=== PATIENT | female | born 1960 | race Caucasian/White ===

== ENCOUNTER 2018-11-01 11:54 | Inpatient (IN) | payer OTHER ==
[~2018-11-01] VITALS: Ht 162.6 cm; Wt 83.0 kg
[2018-11-01] VITALS (7 sets, daily range): BP systolic 151–185; BP diastolic 79–97
[2018-11-01] MEDS ORDERED: ANTACID SUSP 30 ML UDC (MYLANTA) PO PRN (13:15)
[2018-11-01] MEDS ORDERED: ONDANSETRON 4 MG/2 ML (SDV) Z0FRAN IV PRN (13:15)
[2018-11-01] MEDS ORDERED: MILK OF MAGNESIA 400 MG/5 ML 30 ML UDC PO PRN (13:15)
[2018-11-01] MEDS ORDERED: ACETAMINOPHEN 500 MG TAB (TYLENOL) PO PRN (13:15)
[2018-11-01] MEDS ORDERED: CATHETER FLUSH 10 ML SYR IV PRN (15:45)
[2018-11-01] MEDS ORDERED: ACETAMINOPHEN 325 MG TABLET PO PRN (15:45)
[2018-11-01] MEDS ORDERED: PIPERACILLIN/TAZO 4.5 GM/NS 100 ML IV NR ×2 (15:45)
[2018-11-01] MEDS ORDERED: RT-ALBUTEROL/IPRATROPIUM 3 ML (DUONEB) VIAL INH PRN (16:00)
[2018-11-01] MEDS: methylPREDNISolone 40 MG/ML (Solu-MEDROL) VIAL IV SCH (18:00)
--- NOTE | 2018-11-01 18:06 | Diagnostic Imaging Report ---
PATIENT HISTORY: Hypoxia, difficulty breathing. TECHNIQUE: Single frontal view the chest. COMPARISON: None. FINDINGS: The lung volumes are normal. No focal consolidation is seen. No large pleural effusion or pneumothorax is seen. The cardiomediastinal silhouette is normal in size and contour. No acute osseous abnormality is seen. Cervical spine fusion hardware is noted. IMPRESSION: No acute pulmonary abnormality seen. Dictated by: Dictated on workstation # [id number]
[2018-11-01] MEDS: NITROGLYCERIN 2% OINT 1 GM UNIT DOSE PACKET TOP PRN (18:34)
[2018-11-01] MEDS ORDERED: diphenhydrAMINE 25 MG TAB (BENADRYL) PO PRN (18:45)
[2018-11-01] MEDS: RT-ALBUTEROL/IPRATROPIUM 3 ML (DUONEB) VIAL INH SCH ×2 (19:02→22:20)
[2018-11-01] MEDS: PIPERACILLIN SODIUM/TAZOBACTAM 4.5 GM in NS (IVPB) 100 ML IV SCH (21:18)
[2018-11-01] MEDS: MELATONIN 3 MG TABLET PO SCH (21:18)
[2018-11-01] MEDS: CATHETER FLUSH 10 ML SYR IV SCH (21:19)
[2018-11-02] VITALS (7 sets, daily range): BP systolic 143–202; BP diastolic 80–100
[2018-11-02] MEDS: methylPREDNISolone 40 MG/ML (Solu-MEDROL) VIAL IV SCH ×5 (00:36→23:15)
[2018-11-02] MEDS: RT-ALBUTEROL/IPRATROPIUM 3 ML (DUONEB) VIAL INH SCH ×6 (02:28→21:10)
[2018-11-02 03:56] LABS: BASOPHILS % (AUTO) 0 % (0-10); EOSINOPHILS % (AUTO) 0 % (0-10); HEMATOCRIT 41 % (35-52); HEMOGLOBIN 13.2 G/DL (11.5-16.0); LYMPHOCYTES # (AUTO) 1.3 X 10^3 (1.0-4.0); LYMPHOCYTES % (AUTO) 12 % (12-44); MEAN CORPUSCULAR HEMOGLOBIN 32 PG (25-34); MEAN CORPUSCULAR HGB CONC 33 G/DL (32-36); MEAN CORPUSCULAR VOLUME 98 FL (80-99); MEAN PLATELET VOLUME 10.3 FL (7.4-10.4); MONOCYTES # (AUTO) 0.4 X 10^3 (0.0-1.0); MONOCYTES % (AUTO) 4 % (0-12); NEUTROPHILS # (AUTO) 8.7 X 10^3 (1.8-7.8); NEUTROPHILS % (AUTO) 84 % (42-75); PLATELET COUNT 239 10^3/uL (130-400); RED BLOOD COUNT 4.13 10^6/uL (4.35-5.85); RED CELL DISTRIBUTION WIDTH 12.4 % (10.0-14.5); WHITE BLOOD COUNT 10.4 10^3/uL (4.3-11.0)
[2018-11-02 04:16] LABS: BUN/CREATININE RATIO 23; CARBON DIOXIDE 24 MMOL/L (21-32); CHLORIDE 100 MMOL/L (98-107); CREATININE SERUM 0.79 MG/DL (0.60-1.30); GFR ESTIMATED > 60; GLUCOSE 169 MG/DL (70-105); SODIUM 137 MMOL/L (135-145)
[2018-11-02] MEDS: PIPERACILLIN SODIUM/TAZOBACTAM 4.5 GM in NS (IVPB) 100 ML IV SCH ×3 (06:16→21:12)
[2018-11-02] MEDS: CATHETER FLUSH 10 ML SYR IV SCH ×3 (06:16→21:09)
--- NOTE | 2018-11-02 06:41 | Pulmonary Consultation ---
History of Present Illness History of Present Illness Date of Consultation 11/02/18 06:40 Date of Admission Allergies and Home Medications Allergies Coded Allergies: No Allergy Information Available (Unverified , 11/01/18) Past Uhpadkq-Agxasx-Iaboyx Hx Patient Social History Alcohol Use: Rarely Uses Number of Drinks Today: 0 Alcohol Beverage of Choice: Beer Recreational Drug Use: No Smoking Status: Current Everyday Smoker Type Used: Cigarettes Recent Foreign Travel: No Contact w/Someone Who Travel: No Recent Infectious Disease Expo: No Recent Hopitalizations: Yes Immunizations Up To Date Date of Influenza Vaccine: Aug 01, 2018 Seasonal Allergies Seasonal Allergies: No Past Medical History Asthma, Pneumonia, COPD, Emphysema Currently Using CPAP: No Currently Using BIPAP: No Cardiac: Yes Neurological: No Genitourinary: No Abdominal Hernia, Gall Bladder Disease Musculoskeletal: Yes Degenerate Disk Disease, Chronic Back Pain Endocrine: No HEENT: No Loss of Vision: Denies Hearing Impairment: Denies Cancer: No Psychosocial: No Integumentary: No Blood Disorders: No Adverse Reaction/Blood Tranf: No Sepsis Event Evaluation Height, Weight, BMI Height: 5'4.00" Weight: 183lbs. 1.0oz. 83.823557vm; 31.4 BMI Method: Exam Exam Vital Signs Date Time Temp Pulse Resp B/P (MAP) Pulse Ox O2 Delivery O2 Flow Rate FiO2 11/02/18 04:00 94 Nasal Cannula 4.00 11/02/18 04:00 97.5 80 14 165/91 (115) 96 Nasal Cannula 4.00 11/02/18 02:28 95 Nasal Cannula 4.00 11/02/18 01:00 72 11/02/18 00:00 94 Nasal Cannula 4.00 11/02/18 00:00 98.0 68 14 143/86 (105) 93 Nasal Cannula 4.00 11/01/18 22:21 94 Nasal Cannula 4.00 11/01/18 21:00 94 Nasal Cannula 4.00 11/01/18 20:00 94 Nasal Cannula 4.00 11/01/18 20:00 97.1 77 21 151/79 (103) 95 Nasal Cannula 4.00 11/01/18 19:03 92 Nasal Cannula 4.00 11/01/18 19:00 68 11/01/18 18:26 70 18 184/96 (125) 96 Nasal Cannula 4.00 11/01/18 16:00 94 Nasal Cannula 4.00 11/01/18 15:47 74 94 36 11/01/18 15:47 94 Nasal Cannula 4.00 11/01/18 15:02 94 Nasal Cannula 4.00 11/01/18 15:00 73 22 180/89 (119) 92 Nasal Cannula 4.00 11/01/18 14:45 66 16 168/90 (116) 93 Nasal Cannula 4.00 11/01/18 14:30 98.4 69 18 161/86 (111) 94 Nasal Cannula 4.00 11/01/18 14:25 71 11/01/18 14:20 70 14 185/97 (126) 94 Nasal Cannula 4.00 I & O 11/02/18 06:59 Intake Total 400 ml Balance 400 ml Height & Weight Height: 5'4.00" Weight: 183lbs. 1.0oz. 83.526098rg; 31.4 BMI Method: Results Lab Laboratory Tests 11/02/18 03:05 Assessment/Plan Assessment/Plan AsthmaAE COPDAE r/o PNA -Steroids, SVNS, oxygen -Currently on Zosyn -NO fever or leukocytosis COLEEN PALOMINO DO Nov 02, 2018 06:41
--- NOTE | 2018-11-02 07:17 | Diagnostic Imaging Report ---
INDICATION: Respiratory distress Portable upright AP view of the chest is obtained. Comparison is made to study of 11/01/2018. FINDINGS: Heart size and pulmonary vascularity are within normal limits, and the lungs are clear, bilaterally. IMPRESSION: Unremarkable chest. Dictated by: Dictated on workstation # [id number]
[2018-11-02] MEDS: NICOTINE 21 MG (NICODERM) PATCH TD SCH (08:25)
[2018-11-02] MEDS ORDERED: OMEP40CA36 PO (11:17)
[2018-11-02] MEDS ORDERED: DILT180C PO (11:17)
[2018-11-02] MEDS ORDERED: SERT50TA9 PO (11:17)
[2018-11-02] MEDS ORDERED: METO100T12 PO (11:17)
[2018-11-02] MEDS ORDERED: OLME40TA12 PO (11:17)
[2018-11-02] MEDS ORDERED: FEXO-14 PO (11:17)
[2018-11-02] MEDS ORDERED: ACET-2267 PO (11:17)
[2018-11-02] MEDS ORDERED: ALBU2.5V4 INH (12:10)
--- NOTE | 2018-11-02 12:14 | NUR ---
WENT OVER THE LIST OF MEDICATIONS SENT FROM [facility] WITH THE PATIENT, SHE VERIFIED HOW SHE TAKES THEM. JOSE C FAXED OVER A LIST OF MEDICATIONS WELL. JOSE C FILLED: 08-12-18 CARTIA XT 180MG DAILY #90 08-12-18 SERTRALINE 50MG DAILY #90 10-08-18 OMEPRAZOLE 40MG BID #60 10-12-18 METOPROLOL TARTRATE 100MG DAILY #30 10-12-18 BENICAR 40MG 1/2 DAILY #45 10-23-18 ERYTHROMYCIN EYE OINT (PATIENT STATES SHE IS NO LONGER TAKING) 10-28-18 ALBUTEROL NEBS 0.083% Q6H PRN SHE IS ALSO TAKING ANDREA 60MG BID AND TYLENOL PRN OTC. SHE STATES SHE IS NOT TAKING KEFLEX THAT WAS ON THE LIST FROM [facility].
--- NOTE | 2018-11-02 12:50 | NUR ---
PT TO ROOM 409 VIA WC ACCOMPANIED BY THIS RN AND PT FAMILY. PT PERSONAL BELONGINGS SENT WITH PT TO ROOM 409. BEDSIDE REPORT GIVEN TO AMBER ALFONSO FOR CONTINUING CARE.
--- NOTE | 2018-11-02 16:53 | History & Physical-Hospitalist ---
History of Present Illness HPI/Chief Complaint The patient is a 58-year-old white female admitted to the hospitalist service from the [facility] emergency room during the night. She had reported there with complaints of harsh coughing and fever and shortness of breath. She is a current smoker and smokes one pack of cigarettes per day and has done so for 40 + years. She states that her symptoms began about and had increased each day until yesterday. She had not taken her temperature but had felt hot and then chilled before there were no sweats. She really had no sputum production. She does not have any MDIs or nebulizers presently. She works as an aide at a assisted. Her only known ailment at this time is hypertension for which she takes medication. Date Seen 11/02/18 Time Seen by a Provider: 16:15 Attending Physician Holli Jimenez MD PCP No,Local Physician Referring Physician Date of Admission Nov 01, 2018 at 14:20 Home Medications & Allergies Home Medications Reviewed patient Home Medication Reconciliation performed by pharmacy medication reconciliations bicycle service technician and/or nursing. Patients Allergies have been reviewed. Allergies Allergies Coded Allergies naproxen (Verified Allergy, Unknown, 11/02/18) Past Gpjdbls-Rsltph-Ggbpmf Hx Past Med/Social Hx: Reviewed Nursing Past Med/Soc Hx Patient Social History Alcohol Use: Rarely Uses Number of Drinks Today: 0 Alcohol Beverage of Choice: Beer Recreational Drug Use: No Smoking Status: Current Everyday Smoker Type Used: Cigarettes Physical Abuse Screen: No Sexual Abuse: No Recent Foreign Travel: No Contact w/other who traveled: No Recent Hopitalizations: Yes Recent Infectious Disease Expo: No Immunizations Up To Date Date of Influenza Vaccine: Aug 01, 2018 Seasonal Allergies Seasonal Allergies: No Past Medical History Currently Using CPAP: No Currently Using BIPAP: No Gastrointestinal: Abdominal Hernia, Gall Bladder Disease Musculoskeletal: Degenerate Disk Disease, Chronic Back Pain Loss of Vision: Denies Hearing Impairment: Denies History of Blood Disorders: No Adverse Reaction to Blood Bassett: No Review of Systems Constitutional: see HPI EENTM: no symptoms reported Respiratory: see HPI, cough Cardiovascular: no symptoms reported Gastrointestinal: no symptoms reported Genitourinary: no symptoms reported Musculoskeletal: muscle pain Skin: no symptoms reported Psychiatric/Neurological: No Symptoms Reported Physical Exam Physical Exam Vital Signs Vital Signs - First Documented 11/01/18 11/01/18 11/01/18 14:20 14:30 15:47 Temp 98.4 Pulse 70 Resp 14 B/P (MAP) 185/97 (126) Pulse Ox 94 O2 Delivery Nasal Cannula O2 Flow Rate 4.00 FiO2 36 Capillary Refill : Height, Weight, BMI Height: 5'4.00" Weight: 183lbs. 1.0oz. 83.842815co; 31.4 BMI Method: General Appearance: Mild Distress Eyes: Bilateral Eye Normal Inspection HEENT: Normal ENT Inspection Neck: Normal Inspection Respiratory: Rhonci (bibasilar) Cardiovascular: Regular Rate, Rhythm, No Edema, No Gallop, No JVD, No Murmur, Normal Peripheral Pulses Gastrointestinal: Normal Bowel Sounds Back: Normal Inspection, No CVA Tenderness, No Vertebral Tenderness Skin: Normal Color, Warm/Dry Lymphatic: No Adenopathy Results Results/Procedures Labs Laboratory Tests 11/02/18 03:05 Patient resulted labs reviewed. Assessment/Plan Admission Diagnosis Respiratory distress. 2.intractable cough. 3.hypertension Admission Status: Inpatient Order (span 2 midnights) Reason for Inpatient Admission: Respiratory distress requiring greater than 2 midnight Assessment and Plan Respiratory distress. 2.intractable cough. 3.hypertension Clinical Quality Measures DVT/VTE Risk/Contraindication: Risk Factor Score Per Nursin RFS Level Per Nursing on Admit: 3=High USHA MACHADO MD Nov 02, 2018 16:53
[2018-11-02] MEDS ORDERED: ACETAMINOPHEN 500 MG TAB (TYLENOL) PO PRN (17:00)
[2018-11-02] MEDS: meTOprolol TARTRATE 50 MG (LOPRESSOR) TAB PO SCH (17:58)
[2018-11-02] MEDS: DILTIAZEM 180 MG (CARDIZEM CD) CAP PO SCH (17:58)
[2018-11-02] MEDS: OLMESARTAN 20 MG (BENICAR) TABLET PO SCH (18:17)
--- NOTE | 2018-11-02 20:12 | NUR ---
This RN called Dr. Julio in reference to the patient's blood pressure. Manual blood pressure is 202/100, patient is complaining of a headache. Pulse is 88, respirations are 18 on 2L with SPO2 at 92%. Patient had received 100mg of Lopressor 2 hours prior to my call. Dr. Julio states that 2 hours wasn't long enough to wait. This RN asked when he would like called back if blood pressure is still high and he states tomorrow. No new orders received. Will continue to monitor.
[2018-11-02] MEDS: MELATONIN 3 MG TABLET PO SCH (21:09)
[2018-11-02] MEDS: NITROGLYCERIN 2% OINT 1 GM UNIT DOSE PACKET TOP PRN (21:11)
[2018-11-03] VITALS: BP 185/86
[2018-11-03] MEDS: RT-ALBUTEROL/IPRATROPIUM 3 ML (DUONEB) VIAL INH SCH ×4 (01:09→13:52)
[2018-11-03 04:00] VITALS: BP 167/80
[2018-11-03] MEDS: PIPERACILLIN SODIUM/TAZOBACTAM 4.5 GM in NS (IVPB) 100 ML IV SCH (05:11)
[2018-11-03] MEDS: methylPREDNISolone 40 MG/ML (Solu-MEDROL) VIAL IV SCH (05:11)
[2018-11-03] MEDS: CATHETER FLUSH 10 ML SYR IV SCH ×2 (05:12→09:30)
--- NOTE | 2018-11-03 06:43 | Pulmonary Progress Note ---
Subjective Time Seen by a Provider: 06:42 Subjective/Events-last exam No complications noted. Sepsis Event Evaluation Height, Weight, BMI Height: 5'4.00" Weight: 183lbs. 1.0oz. 83.810727rw; 31.4 BMI Method: Exam Exam Vital Signs Date Time Temp Pulse Resp B/P (MAP) Pulse Ox O2 Delivery O2 Flow Rate FiO2 11/03/18 04:00 97.7 81 18 167/80 (109) 94 Nasal Cannula 2.00 2.00 11/03/18 01:09 91 Nasal Cannula 2.00 11/03/18 00:00 97.8 80 18 185/86 (119) 95 Nasal Cannula 2.00 2.00 11/02/18 21:10 92 Nasal Cannula 2.00 11/02/18 21:00 Nasal Cannula 4.00 11/02/18 20:00 98.2 88 18 202/100 (134) 92 Nasal Cannula 2.00 11/02/18 18:24 91 Nasal Cannula 2.00 11/02/18 16:26 99.6 101 18 178/86 (116) 91 Nasal Cannula 4.00 11/02/18 12:54 99.3 106 18 173/87 (115) 94 Nasal Cannula 4.00 11/02/18 12:00 95 Nasal Cannula 2.00 11/02/18 09:53 95 Nasal Cannula 4.00 11/02/18 08:26 98.1 96 19 148/80 (102) 95 Nasal Cannula 4.00 11/02/18 08:00 96 23 148/80 (102) 94 Nasal Cannula 2.00 11/02/18 08:00 95 Nasal Cannula 4.00 11/02/18 08:00 95 Nasal Cannula 4.00 11/02/18 07:00 96 I & O 11/03/18 07:00 Intake Total 1440 ml Balance 1440 ml Height & Weight Height: 5'4.00" Weight: 183lbs. 1.0oz. 83.086923we; 31.4 BMI Method: General Appearance: No Apparent Distress HEENT: Normal ENT Inspection Neck: Normal Inspection Respiratory: Lungs Clear, No Accessory Muscle Use, No Respiratory Distress Cardiovascular: Regular Rate, Rhythm, No Edema, No Gallop, No JVD, No Murmur, Normal Peripheral Pulses Capillary Refill: Less Than 3 Seconds Gastrointestinal: normal bowel sounds, non tender, soft Extremity: Normal Capillary Refill, Normal Inspection Neurologic/Psychiatric: Alert Skin: Normal Color, Warm/Dry Lymphatic: No Adenopathy Results Lab Laboratory Tests 11/02/18 03:05 Assessment/Plan Assessment/Plan AsthmaAE - improved -Start singulair, zyrtec -Add Advair -D/C solumedrol and start prednisone taper. COPDAE Doubt PNA -Steroids, SVNS, oxygen -D/C Zosyn -NO fever or leukocytosis Probable OPAL -Out patient testing. Pt is ok for discharge from pulmonary standpoint after oxygen ambulation testing. COLEEN PALOMINO DO Nov 03, 2018 06:43
[2018-11-03] MEDS ORDERED: RT-ADVAIR HFA 115/21 MCG PER PUFF IH SCH (08:00)
[2018-11-03] MEDS: OLMESARTAN 20 MG (BENICAR) TABLET PO SCH (08:04)
[2018-11-03] MEDS: meTOprolol TARTRATE 50 MG (LOPRESSOR) TAB PO SCH (08:04)
[2018-11-03] MEDS: DILTIAZEM 180 MG (CARDIZEM CD) CAP PO SCH (08:04)
[2018-11-03] MEDS: NICOTINE 21 MG (NICODERM) PATCH TD SCH (08:05)
[2018-11-03 09:00] VITALS: BP 115/83
[2018-11-03] MEDS ORDERED: NON-FORMULARY MEDICATION 1 EA EA (Diltiazem HCl (Diltiazem 24Hr ER) 180 MG) PO SCH (09:00)
[2018-11-03] MEDS ORDERED: NON-FORMULARY MEDICATION 1 EA EA (Metoprolol Tartrate 100 MG) PO SCH (09:00)
[2018-11-03] MEDS ORDERED: OLMESARTAN MEDOXOMIL 20 MG PO SCH (09:00)
[2018-11-03] MEDS ORDERED: LORATADINE (CLARITIN) 10 MG TAB PO SCH (09:00)
[2018-11-03] MEDS: predniSONE 10 MG TAB PO SCH ×2 (09:29→09:30)
[2018-11-03 12:00] VITALS: BP 166/79
--- NOTE | 2018-11-03 12:23 | Progress Note-Hospitalist ---
Progress Note Progress Notes/Assess & Plan Date Seen 11/03/18 Time Seen by Provider: 11:30 Assessment & Plan The patient is sitting on the bedside chair and appears comfortable. She states that she feels much better than yesterday. Dr. Mitchell has seen her today and believes she is ready for discharge. She is currently awaiting an assessment by respiratory therapy relative to home O2 requirements. 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 This requires a moderate degree of physical effort when she has been able to do. She is again cautioned that it is past time to quit smoking Physical exam: She is sitting in the chair. She has good color. Lungs show somewhat distant breath sounds but without wheezing or rhonchi. CV is regular. Extremities show no pedal edema. Impression: COPD. 2.acute bronchitis. Plan: Await respiratory therapy for home O2 testing. USHA MACHADO MD Nov 03, 2018 12:23
--- NOTE | 2018-11-03 14:02 | Discharge Instructions ---
Discharge Instructions Patient Instructions Patient Instructions: Medications as listed on the discharge sequence. Oxygen at 3 L during physical activity Consider pulmonary rehabilitation program under Dr. Mitchell. Activity & Diet Discharge Diet: No Restrictions, Semi-Solid Diet Activity as Tolerated: Yes USHA MACHADO MD Nov 03, 2018 14:02
[2018-11-03] MEDS ORDERED: PRD10T PO (14:06)
--- NOTE | 2018-11-03 14:06 | NUR ---
SPO2 DROPPED TO 85% ON ROOM AIR WITH EXERTION. REPLACED O2 @ 3 LPM. SPO2 STAYED ABOVE 90% ON 3 LPM WITH EXERTION. Addendum: 11/03/18 at 1406 by CRISTY WAN RT Amended: Links added.
--- NOTE | 2018-11-03 15:37 | NUR ---
CM/SS Patient is in need of oxygen, patient would like [facility] for provider. Information sent to them and choice form in the chart.
[2018-11-03 16:30] VITALS: BP 153/74
[2018-11-03 17:00] VITALS: BP 153/74
[2018-11-03] MEDS ORDERED: MONTELUKAST 10 MG (SINGULAIR) TAB PO SCH (21:00)
== END 2018-11-03 17:00 | disposition home or self-care (01) | DRG 202 ==
LOC: ICU 14:20 → 4TH 11-02 13:01
PROVIDERS: ADMIT Family Medicine; ATTEND Family Medicine
DX: J20.9 Acute bronchitis, unspecified (principal); J45.901 Unspecified asthma with (acute) exacerbation; J43.9 Emphysema, unspecified; I10 Essential (primary) hypertension; F17.210 Nicotine dependence, cigarettes, uncomplicated; G47.33 Obstructive sleep apnea (adult) (pediatric)
CPT/HCPCS: 36415; 71045; 80048; 85025; 94640; 94760; 94761

== ENCOUNTER → 2019-08-31 | Outpatient (CLI) | payer OTHER ==
[~2019-08-31] MED LIST: ACET-2267 PO; ALBU2.5V4 INH; DILT180C PO; FEXO-14 PO; METO100T12 PO; OLME40TA12 PO; OMEP40CA36 PO; PRD10T PO; SERT50TA9 PO
--- NOTE | 2019-08-31 09:18 | Diagnostic Imaging Report ---
PROCEDURE: MRI lumbar spine. TECHNIQUE: Multiplanar, multisequence MRI of the lumbar spine was performed without contrast. INDICATION: Chronic lower back pain. COMPARISON: None FINDINGS: For the purposes of this exam, last well-formed disc space is denoted the L5-S1 level. Static alignment shows mild dextroscoliotic curvature. AP static alignment, however, is maintained. There is no significant anteroretrolisthesis. There is no evidence of jumped facets. Vertebral body heights are preserved. There is no evidence of acute fracture. Benign L2 hemangioma is noted. Otherwise, marrow signal is within normal limits. There is mild multilevel intervertebral disc height loss. Visualized portions of the distal cord are unremarkable. Conus terminates at approximately the L1 level. No abnormal intrathecal filling defects are seen. Pre and paravertebral soft tissue structures are unremarkable. Axial images demonstrate the following: T12-L1: There is slight broad-based posterior disc bulge. This results in minimal narrowing of the spinal canal. Neural foramen are unremarkable. L1-L2: There is no large disc bulge or focal protrusion. There is bilateral ligamentum flavum laxity and facet arthropathy. There is, however, no significant spinal canal or neuroforaminal stenosis. L2-L3: There is mild broad-based posterior disc bulge with bilateral ligamentum flavum laxity and facet arthropathy. As a result, there is mild narrowing of the spinal canal and bilateral neural foramen. L3-L4: There is mild broad-based posterior disc bulge and bilateral ligamentum flavum laxity and facet arthropathy. As a result, there is minimal narrowing of the spinal canal and bilateral neural foramen. L4-L5: There is broad-based posterior disc bulge and bilateral ligamentum flavum laxity and facet arthropathy. As a result, there is mild narrowing of the spinal canal and bilateral neural foramen. L5-S1: There is no large disc bulge or focal protrusion. There is bilateral facet arthropathy, but no significant spinal canal or neuroforaminal stenosis. IMPRESSION: 1. Mild multilevel degenerative changes of the lumbar spine, but no significant spinal canal or neuroforaminal stenosis. 2. No acute fracture or dislocation. Dictated by: Dictated on workstation # [id number]
== END ==
LOC: RAD 08:01
PROVIDERS: ATTEND Nurse Practitioner Community Health
DX: M47.26 Other spondylosis with radiculopathy, lumbar region (principal); E66.9 Obesity, unspecified
CPT/HCPCS: 72148